=== PATIENT | male | born 1975 | race Caucasian/White ===

== ENCOUNTER 2021-03-04 16:42 | Emergency (ER) | payer OTHER ==
[2021-03-04] MEDS ORDERED: Sodium Chloride 0.9% 1000 ML 1,000 ML IV STA (17:13)
[2021-03-04] MEDS ORDERED: Reglan 10 MG/2 ML IV ONE (17:20)
[2021-03-04] MEDS ORDERED: Sodium Chloride 0.9% 1000 ML 1,000 ML ONE (17:21)
[2021-03-04] MEDS ORDERED: Reglan 10 MG/2 ML ONE (17:21)
[2021-03-04] MEDS ORDERED: GI COCKTAIL 45 ML (Maalox/Lidocaine) PO ONE (17:53)
[2021-03-04] MEDS ORDERED: PROTONIX 40 MG IV IV ONE ×2 (17:53→18:00)
[2021-03-04] MEDS ORDERED: MAALOX ES 30 ML UNIT DOSE ONE (18:00)
[2021-03-04] MEDS ORDERED: XYLOCAINE HCl Viscous ONE (18:00)
[2021-03-04 18:32] LABS: ALKALINE PHOSPHATASE 112 U/L (38-126); ANION GAP 13.6 MEQ/L (5-15); BLOOD UREA NITROGEN 15 mg/dL (9-20); CHLORIDE 105 mmol/L (98-107); Calcium 9.5 mg/dL (8.4-10.2); Carbon Dioxide 23 mmol/L (22-30); Creatinine 1 0.62 mg/dL (0.66-1.25); EST GLOMERULAR FILTRATION RATE > 60.0 ML/MIN; Glucose 105 mg/dL (74-106); LIPASE 105 U/L (23-300); Potassium 4.2 mmol/L (3.5-5.1); SGOT/AST 23 U/L (17-59); SGPT/ALT 19 U/L (0-50); SODIUM 137 mmol/L (137-145); Total Protein 7.1 g/dL (6.3-8.2)
[2021-03-04 18:33] LABS: Absolute Neutrophil Ct (ANC) 6.94 (1.4-6.9); BASOPHIL % 0.5 % (0.0-0.4); Basophil (Absolute #) 0.05 (0-0.4); Eosinophil % 1.7 % (0.00-5.0); Eosinophil (Absolute #) 0.17 (0-0.5); Hematocrit 46.8 % (42-50); Hemoglobin 14.7 gm/dl (12.5-18.0); Lymphocyte (Absolute #) 1.89 (1.0-4.6); Mean Cell Volume 92.3 fl (78-100); Mean Corpuscular Hgb Concent. 31.4 g/dl (32-36); Mean Platelet Volume 9.9 fl (7.5-11.0); Monocyte (Absolute #) 0.91 (0.0-1.3); Monocytes % 9.1 % (0.0-12.0); Neutrophil % 69.7 % (36.0-66.0); Platelet Count 314 K/mm3 (150-450); Red Blood Count 5.07 M/mm3 (4.1-5.6)
--- NOTE | 2021-03-04 19:49 | ERPHSYRPT ---
- History of Present Illness Time Seen by Provider: 03/04/21 16:44 Source: patient Exam Limitations: no limitations Patient Subjective Stated Complaint: Pt states "I got home from work and I ate some chilli soup and I have been having this horrible gas feeling in my belly. I have been belching quite a bit and it arriaga." Triage Nursing Assessment: Pt preseneted alert and oriented X 3, skin pwd pt ambulates with an upright steady gait, able to speak in clear full sentences pt in no apparent respiratory distress. Pt belching frequently Physician History: 45 years old male presented in the ER with chief complaint of belching and burning sensation substernally after he had his chili soup last night and then again at work. Since then he is having off-and-on burping. Patient reports it feels like he has a bubble in the epigastrium/substernal area and gassy feeling that does not go away. Denies any vomiting but has minimal nausea. Denies any chest pain palpitations or shortness of breath. No fever chills or cough reported. Timing/Duration: yesterday, intermittent, gradual onset, worse Severity: moderate Modifying Factors: Improves With: nothing Allergies/Adverse Reactions: No Known Drug Allergies Allergy (Verified 03/04/21 16:58) Home Medications: Amlodipine Besylate/Benazepril [Amlodipine-Benazepril 5-10 mg] 1 tab PO DAILY 03/04/21 [History] Atorvastatin Calcium [Lipitor] 20 mg PO DAILY 03/04/21 [History] Hx Tetanus, Diphtheria Vaccination/Date Given: No Hx Influenza Vaccination/Date Given: No Hx Pneumococcal Vaccination/Date Given: No Immunizations Up to Date: Yes Travel Risk - International Travel Have you traveled outside of the country in past 3 weeks: No - Coronavirus Screening Are you exhibiting any of the following symptoms?: No Close contact with a COVID-19 positive Pt in past 14-21 Days: No - Vaccine Status Have you recieved a Covid-19 vaccination: No - Review of Systems Constitutional: No Symptoms Eyes: No Symptoms Ears, Nose, & Throat: No Symptoms Respiratory: No Symptoms Cardiac: No Symptoms Abdominal/Gastrointestinal: Nausea Genitourinary Symptoms: No Symptoms Musculoskeletal: No Symptoms Skin: No Symptoms Neurological: No Symptoms Psychological: No Symptoms Endocrine: No Symptoms Hematologic/Lymphatic: No Symptoms - Past Medical History Pertinent Past Medical History: Yes Cardiac History: High Cholesterol, Hypertension GI Medical History: No Pertinent History History: Other - Past Surgical History Past Surgical History: Yes Other Surgical History: hirchsprung - Social History Smoking Status: Never smoker Exposure to second hand smoke: No Drug Use: none Patient Lives Alone: No - Nursing Vital Signs Nursing Vital Signs: Initial Vital Signs Temperature 97.6 F 03/04/21 16:53 Pulse Rate 84 03/04/21 16:53 Respiratory Rate 22 03/04/21 16:53 Blood Pressure 172/86 03/04/21 16:53 O2 Sat by Pulse Oximetry 98 03/04/21 16:53 Pain Scale Pain Intensity 0 - Physical Exam General Appearance: no apparent distress, alert Eye Exam: PERRL/EOMI Ears, Nose, Throat Exam: normal ENT inspection, TMs normal, pharynx normal, moist mucous membranes Neck Exam: normal inspection, non-tender, full range of motion Respiratory Exam: normal breath sounds, lungs clear Cardiovascular Exam: regular rate/rhythm, normal heart sounds Gastrointestinal/Abdomen Exam: soft, normal bowel sounds, No tenderness Back Exam: normal inspection, normal range of motion Extremity Exam: normal inspection, normal range of motion Neurologic Exam: alert, oriented x 3, cooperative Skin Exam: normal color SpO2 Interpretation: normal SpO2: 98 O2 Delivery: Room Air - Course EKG Interpreted by Me: RATE (76), Sinus Rhythm, NORMAL AXIS, NORMAL INTERVALS, NORMAL QRS, Other (PACs) Ordered Tests: Active Orders 24 hr Category Date Time Status EKG-ER Only STAT Care 03/04/21 17:53 Completed IV Insertion STAT Care 03/04/21 17:53 Completed CHEST 1 VIEW (PORTABLE) Stat Exams 03/04/21 17:54 Taken CBC W DIFF Stat Lab 03/04/21 18:15 Completed CMP Stat Lab 03/04/21 18:15 Completed LIPASE Stat Lab 03/04/21 18:15 Completed TROPONIN Q3H Lab 03/04/21 18:15 Completed Medication Summary Discontinued Medications Generic Name Dose Route Start Last Admin Trade Name Freq PRN Reason Stop Dose Admin Al Hydrox/Mg Hydrox/Simethicone Confirm 03/04/21 18:00 Maalox Es 30 Ml Unit Dose Administered 03/04/21 18:01 Dose 30 ml .ROUTE .STK-MED ONE Sodium Chloride 1,000 mls @ 999 mls/hr 03/04/21 17:13 03/04/21 18:25 Sodium Chloride 0.9% 1000 Ml IV 03/04/21 18:13 Infused .Q1H1M STA Infusion Sodium Chloride Confirm 03/04/21 17:21 Sodium Chloride 0.9% 1000 Ml Administered 03/04/21 17:22 Dose 1,000 mls @ ud .ROUTE .STK-MED ONE Lidocaine HCl Confirm 03/04/21 18:00 Xylocaine Hcl Viscous * Administered 03/04/21 18:01 Dose 15 ml .ROUTE .STK-MED ONE Magnesium Hydroxide 45 ml 03/04/21 17:53 03/04/21 18:05 Gi Cocktail 45 Ml (Maalox/Lidocaine) PO 03/04/21 17:54 45 ml STAT ONE Administration Metoclopramide HCl 10 mg 03/04/21 17:20 03/04/21 17:22 Reglan 10 Mg/2 Ml IV 03/04/21 17:21 10 mg STAT ONE Administration Metoclopramide HCl Confirm 03/04/21 17:21 Reglan 10 Mg/2 Ml Administered 03/04/21 17:22 Dose 10 mg .ROUTE .STK-MED ONE Pantoprazole Sodium 40 mg 03/04/21 17:53 03/04/21 18:04 Protonix 40 Mg Iv IV 03/04/21 17:54 40 mg STAT ONE Administration Pantoprazole Sodium Confirm 03/04/21 18:00 Protonix 40 Mg Iv Administered 03/04/21 18:01 Dose 40 mg IV .STK-MED ONE Lab/Rad Data: Laboratory Result Diagrams 03/04/21 18:15 03/04/21 18:15 Laboratory Results 03/04/21 03/04/21 03/04/21 Range/Units 18:15 18:15 18:15 WBC 10.0 (4.0-10.5) K/mm3 RBC 5.07 (4.1-5.6) M/mm3 Hgb 14.7 (12.5-18.0) gm/dl Hct 46.8 (42-50) % MCV 92.3 (78-100) fl MCH 29.0 (26-32) pg MCHC 31.4 L (32-36) g/dl RDW 14.0 (11.5-14.0) % Plt Count 314 (150-450) K/mm3 MPV 9.9 (7.5-11.0) fl Gran % 69.7 H (36.0-66.0) % Eos # (Auto) 0.17 (0-0.5) Absolute Lymphs (auto) 1.89 (1.0-4.6) Absolute Monos (auto) 0.91 (0.0-1.3) Lymphocytes % 19.0 L (24.0-44.0) % Monocytes % 9.1 (0.0-12.0) % Eosinophils % 1.7 (0.00-5.0) % Basophils % 0.5 (0.0-0.4) % Absolute Granulocytes 6.94 H (1.4-6.9) Basophils # 0.05 (0-0.4) Sodium 137 (137-145) mmol/L Potassium 4.2 (3.5-5.1) mmol/L Chloride 105 (98-107) mmol/L Carbon Dioxide 23 (22-30) mmol/L Anion Gap 13.6 (5-15) MEQ/L BUN 15 (9-20) mg/dL Creatinine 0.62 L (0.66-1.25) mg/dL Estimated GFR > 60.0 ML/MIN Glucose 105 (74-106) mg/dL Calcium 9.5 (8.4-10.2) mg/dL Total Bilirubin 0.30 (0.2-1.3) mg/dL AST 23 (17-59) U/L ALT 19 (0-50) U/L Alkaline Phosphatase 112 (38-126) U/L Troponin I < 0.012 (0.000-0.034) ng/mL Serum Total Protein 7.1 (6.3-8.2) g/dL Albumin 4.0 (3.5-5.0) g/dL Lipase 105 (23-300) U/L - Progress Progress: improved Progress Note: 03/04/21 19:47 45 years old is evaluated in the ER for belching/burning substernally after having spicy food. Given GI cocktail along with Protonix and Reglan, on reevaluation his symptoms are improved. No chest pain or shortness of breath. No peritoneal signs on abdominal exam. X-rays reviewed by me did not reveal any acute findings. EKG normal sinus rhythm with no acute ST elevation, negative troponins. Grossly unremarkable lab work otherwise. I believe patient has GERD with esophagitis, started on Carafate and Protonix and outpatient follow-up recommended. Do not think cardiac in nature and there is no need for second tro ponin and also symptoms been going on since last night. Discussed signs symptoms of worsening needing return to ER which he seems understanding. Stable for discharge Counseled pt/family regarding: lab results, diagnosis, need for follow-up, rad results - Departure Departure Disposition: Home Clinical Impression: Belching symptom GERD with esophagitis Qualifiers: Esophagitis bleeding: without hemorrhage Qualified Code(s): K21.00 - Gastro- esophageal reflux disease with esophagitis, without bleeding Condition: Stable Critical Care Time: No Referrals: KRISTEL GARCIA MD [Primary Care Provider] - Follow Up with PCP/3 days Instructions: Acid Reflux and GERD in Adults (DC) Additional Instructions: Do not take fatty/spicy food. Follow-up with primary care for reevaluation. Return to ER for any worsening.Take Tylenol as needed for pain. Prescriptions: Sucralfate 1 gm [Carafate 1 GM] 1 g PO ACHS #20 tablet PANTOPRAZOLE 40 mg Tablet [Protonix 40MG Tablet] 40 mg PO QAM #30 tab
[2021-03-04 20:13] VITALS: BP 154/89; PULSE 90
[2021-03-04 23:29] VITALS: O2SAT 98
--- NOTE | 2021-03-05 08:42 | XRAY ---
Indication: Chest pain. Comparison: None Portable chest clear. Heart and mediastinal structures within normal limits. Bony thorax intact.
== END 2021-03-04 20:15 | disposition home or self-care (01) ==
LOC: ED 16:42
DX: R14.2 Eructation (principal); K21.00 Gastro-esophageal reflux disease with esophagitis, without bleeding
CPT/HCPCS: 36000; 36415; 71045; 80053; 83690; 84484; 85025; 93005; 96360; 96374; 96375; 99284; A9270-GY